=== PATIENT | female | born 1995 | race Two or more races ===

== ENCOUNTER 2020-02-16 21:00 | Emergency (ER) | payer OTHER ==
[~2020-02-16] VITALS: Ht 162.6 cm; Wt 73.0 kg
[2020-02-16] MEDS ORDERED: HYDROcodone/APAP 5/325MG 1 TAB TABLET PO ONE (21:15)
--- NOTE | 2020-02-16 21:31 | PHYS DOC ---
Past Medical History Past Medical History: No Pertinent History Past Surgical History: Additional Past Surgical Histo: 2018 Smoking Status: Never Smoker Alcohol Use: Rarely General Adult EDM: Chief Complaint: ANKLE PROBLEM HPI: HPI: Patient is a 24 year old female who presents with was walking down the stairs on her porch and she misjudged and there was more stairs left than she thought and she rolled her right ankle inward and causing her to have lateral foot pain. Patient has a small quarter sized area of bruising and swelling to the lateral foot. She rates her pain 7 out of 10. Patient is refusing any pain medications. Patient has a history of . Review of Systems: Review of Systems: Constitutional: Denies fever or chills. [] Eyes: Denies change in visual acuity. [] HENT: Denies nasal congestion or sore throat. [] Respiratory: Denies cough or shortness of breath. [] Cardiovascular: Denies chest pain. + Lateral foot 1+ and ankle 1+ edema. [] GI: Denies abdominal pain, nausea, vomiting, bloody stools or diarrhea. [] : Denies dysuria. [] Musculoskeletal: Denies back pain. + Right foot and ankle joint pain. [] Integument: Denies rash. + Right lateral foot bruising [] Neurologic: Denies headache, focal weakness or sensory changes. [] Endocrine: Denies polyuria or polydipsia. [] Lymphatic: Denies swollen glands. [] Psychiatric: Denies depression or anxiety. [] Heart Score: Risk Factors: Risk Factors: DM, Current or recent (<one month) smoker, HTN, HLP, family history of CAD, obesity. Risk Scores: Score 0 - 3: 2.5% MACE over next 6 weeks - Discharge Home Score 4 - 6: 20.3% MACE over next 6 weeks - Admit for Clinical Observation Score 7 - 10: 72.7% MACE over next 6 weeks - Early Invasive Strategies Current Medications: Current Medications Medications (Trade) Dose Ordered Sig/Ora Start Time Stop Time Status Last Admin Dose Admin Acetaminophen/ Hydrocodone Bitart (Lortab 5/325) 1 tab 1X ONCE 02/16/20 21:15 02/16/20 21:18 DC Allergies: Allergies: Allergies Coded Allergies Type Severity Reaction Last Updated Verified No Known Drug Allergies 02/16/20 No Physical Exam: PE: Constitutional: Well developed, well nourished, no acute distress, non-toxic appearance. [] HENT: Normocephalic, atraumatic, bilateral external ears normal, oropharynx moist, no oral exudates, nose normal. [] Eyes: PERRLA, EOMI, conjunctiva normal, no discharge. [] Neck: Normal range of motion, no tenderness, supple, no stridor. [] Cardiovascular:Heart rate regular rhythm, no murmur [] Lungs & Thorax: Bilateral breath sounds clear to auscultation [] Abdomen: Bowel sounds normal, soft, no tenderness, no masses, no pulsatile masses. [] Skin: Warm, dry, no erythema, no rash. [] Back: No tenderness, no CVA tenderness. [] Extremities: Right lateral foot tenderness, no cyanosis, no clubbing, ROM intact, right lateral foot 1+ and ankle 1+ edema. [] Neurologic: Alert and oriented X 3, normal motor function, normal sensory function, no focal deficits noted. [] Psychologic: Affect normal, judgement normal, mood normal. [] Current Patient Data: Vital Signs: Vital Signs Date Time Temp Pulse Resp B/P (MAP) Pulse Ox O2 Delivery O2 Flow Rate FiO2 02/16/20 21:08 97.9 105 16 148/67 (94) 96 Room Air 97.9 EKG: EKG: [] Radiology/Procedures: Radiology/Procedures: [] Impression: [facility] [address] [place] [address] IMAGING REPORT Signed PATIENT: JUSTINE ROSALES ACCOUNT: [id number] : 1995 LOCATION: ER AGE: 24 SEX: F EXAM STATUS: REG ER ORD. PHYSICIAN: GORDY KIDD APRN REASON: rolled ankle inward, lateral foot pain PROCEDURE: FOOT RIGHT 3V EXAM: 1. RIGHT ANKLE 3 VIEWS. 2. RIGHT FOOT 3 VIEWS. HISTORY: Pain after injury. COMPARISON: None. FINDINGS: No fractures are identified about the ankle. The alignment of the mortise is maintained. Joint spaces are maintained. No fractures are identified in the foot. Alignment is normal. Joint spaces are maintained. IMPRESSION: 1. No fracture. Electronically signed by: Jagruti Fulton MD (02/16/2020 10:06 PM) [facility] DICTATED and SIGNED BY: SANTINO FULTON MD DATE: 02/16/20 [id number] 0 Course & Med Decision Making: Course & Med Decision Making Pertinent Labs and Imaging studies reviewed. (See chart for details) See HPI. Patient has right foot lateral tenderness with palpation with a quarter sized bruised bump area that is tender to palpation. Patient can wiggle all of her toes. She has full range of motion of her right ankle. There is no joint laxity or deformity. Lateral ankle looks approximately 1+ swollen. But there is no bruising. Cap refill is less than 2 seconds. Pedal pulse is strong and present. Skin pink warm and dry. Patient states that she can put some pressure but not full pressure on the extremity when standing. X-ray show no acute finding. Patient is placed in a walking boot. Patient to follow-up with orthopedics if needed. [] Lucrecia Disclaimer: Lucrecia Disclaimer: This electronic medical record was generated, in whole or in part, using a voice recognition dictation system. Departure Departure Impression: Primary Impression: Ankle pain, right Qualified Codes: M25.571 - Pain in right ankle and joints of right foot Additional Impression: Foot pain, right Disposition: 01 DC HOME SELF CARE/HOMELESS Condition: STABLE Referrals: JU TORRES (PCP) FROILAN RYAN MD Patient Instructions: Ankle Sprain, Foot Contusion, Foot Sprain-Brief Additional Instructions: Follow-up with orthopedics as soon as possible. Use ice and elevation to help with pain and swelling. Take ibuprofen or Tylenol for pain. GORDY KIDD [employer] Feb 16, 2020 21:31
--- NOTE | 2020-02-16 22:09 | RAD ---
EXAM: 1. RIGHT ANKLE 3 VIEWS. 2. RIGHT FOOT 3 VIEWS. HISTORY: Pain after injury. COMPARISON: None. FINDINGS: No fractures are identified about the ankle. The alignment of the mortise is maintained. Joint spaces are maintained. No fractures are identified in the foot. Alignment is normal. Joint spaces are maintained. IMPRESSION: 1. No fracture. Electronically signed by: Jagruti Fulton MD (02/16/2020 10:06 PM) [facility]
[2020-02-16 22:19] VITALS: BP 125/57
== END 2020-02-16 22:48 | disposition home or self-care (01) ==
LOC: ER 21:00
DX: M25.571 Pain in right ankle and joints of right foot (principal); M79.671 Pain in right foot; X50.9XXA Other and unspecified overexertion or strenuous movements or postures, initial encounter; Y93.89 Activity, other specified; Y92.89 Other specified places as the place of occurrence of the external cause; Y99.8 Other external cause status
CPT/HCPCS: 73610; 73630; 99284